=== PATIENT | female | born 1950 | race Caucasian/White ===

== ENCOUNTER 2024-05-14 06:21 | Day surgery (SDC) | payer MEDICARE, OTHER, SELFPAY | END 2024-05-14 14:06 | disposition home or self-care (01) | LOC: GI 06:21 | PROVIDERS: ATTENDING PHYSICIAN Internal Medicine Gastroenterology; FAMILY PHYSICIAN Internal Medicine | DX: D12.2 Benign neoplasm of ascending colon (principal); D12.3 Benign neoplasm of transverse colon; K63.5 Polyp of colon; K63.89 Other specified diseases of intestine; K57.30 Diverticulosis of large intestine without perforation or abscess without bleeding; K64.0 First degree hemorrhoids; R19.7 Diarrhea, unspecified; R19.4 Change in bowel habit | CPT/HCPCS: 45380; 88305 ==